=== PATIENT | female | born 1985 | race African-American/Black ===

== ENCOUNTER → 2022-05-10 | Outpatient (CLI) | payer OTHER ==
[~2022-05-10] MED LIST: DOCU10CA PO; FERR325T3 PO; IRON65TA PO; LEVA750T7 PO; MIRA3350 PO; MOTR200T44 PO; PERC5TAB12 PO; PRENTAB40 PO; STUART NATAL PO; TUMS500C PO
== END ==
LOC: M RAD 15:02
PROVIDERS: ATTEND Surgery
DX: Z79.899 Other long term (current) drug therapy (principal)